=== PATIENT | male | born 1980 | race African-American/Black ===

== ENCOUNTER → 2020-06-18 | Outpatient (CLI) | payer OTHER ==
--- NOTE | 2020-06-19 16:53 | MRI ---
EXAM DESCRIPTION: Lumbar Spine w/o Contrast : Magnetic Resonance Imaging. CLINICAL HISTORY: ACUTE LOWER BACK PAIN COMPARISON: Lumbar radiographs May 29. TECHNIQUE: Multiplanar, multiple standard sequences, non contrast MRI, lumbar spine. FINDINGS: L5-S1: The disc is well visualized on axial T2 series 501, image 3. Anterior cranial endplate reactive changes extending also into the anterior left and left lateral disc space margin with mild disc space loss. Small marginal spurs on the left lateral and posterior aspect of the endplates. 2 mm grade 1 retrolisthesis. 7.5 mm posterior disc herniation x 27 mm transverse width. The disc is impressing on the upper right subarticular recess and the descending right S1 nerve. Bilaterally short pedicles. Posterior flavum ligament and bilateral facet joints (canal elements) are unremarkable. AP canal diameter 8 millimeters. Borderline right neural foraminal stenosis and mild to moderate left neuroforaminal stenosis. L4-L5: Normal signal within the disc and disc space maintained. Canal elements are unremarkable. Bilaterally shortened pedicles. AP canal diameter 12 mm. Borderline right foraminal stenosis and moderate left foraminal narrowing. L3-L4: Normal signal the disc with disc space maintained. Minimal hypertrophic arthrosis in the right facet joint, but other canal elements are unremarkable. Bilateral short pedicles. AP canal diameter 12 mm. Bilateral moderate foraminal narrowing. L2-L3: Normal signal the disc with disc space maintained. No bulging. Minimal hypertrophic changes in the canal elements. Bilateral short pedicles. AP canal diameter, millimeters. Mild bilateral foraminal narrowing. L1-L2: Normal signal the disc with disc space maintained. No bulging. Minimal hypertrophic changes in the canal elements. Allowing shorten pedicles. AP canal diameter 13 mm. Bilateral foramina are patent. Conus terminates at this level. T12-L1: Normal signal in the disc at this space maintained. Minimal hypertrophic changes in the canal elements. Bilaterally short pedicles. AP canal diameter 13 mm. Bilateral foramina are patent. No significant scoliosis. Paravertebral soft tissues negative.. Distal cord normal signal and caliber. Decreased fatty marrow signal in the spine. No abnormal marrow edema in the remaining vertebral bodies and the posterior elements. Vertebral bodies are not compressed at any level. IMPRESSION: 1. Mild spondylosis anterior, left lateral, and lateral L5- S1 disc space. Disc desiccation. Broad-based posterior and right paracentral disc herniation encroaching on the thecal sac and right subarticular recess stenosis, with impingement right S1 nerve. Mild to moderate canal stenosis. Bilateral neural foraminal stenosis. 2. Multilevel bilaterally shortened pedicles contributing to moderate canal narrowing and foraminal marked narrowing or stenosis at multiple levels. Hypertrophic canal elements contributing to canal narrowing at upper levels. 3. Please refer to FINDINGS for discussion of results at other specific disc space levels. Electronically signed by: Demario Leonard MD 06/19/2020 4:51 PM [facility]
== END ==
LOC: MRI 11:19
PROVIDERS: ATTEND Family Medicine
DX: M47.897 Other spondylosis, lumbosacral region (principal); M51.37 Other intervertebral disc degeneration, lumbosacral region; M51.27 Other intervertebral disc displacement, lumbosacral region; M48.07 Spinal stenosis, lumbosacral region; Q76.49 Other congenital malformations of spine, not associated with scoliosis; G54.4 Lumbosacral root disorders, not elsewhere classified